=== PATIENT | male | born 1975 | race Two or more races ===

== ENCOUNTER 2017-10-31 08:20 | Emergency (ER) | payer MEDICAID ==
[~2017-10-31] VITALS: Ht 165.1 cm; Wt 97.5 kg
[2017-10-31 08:54] VITALS: BP 152/97
[2017-10-31] MEDS ORDERED: LORazepam 2MG/ML-1ML VIAL IM ONE (09:15)
== END 2017-10-31 09:50 | disposition home or self-care (01) ==
LOC: ER 08:20
DX: T40.3X1A Poisoning by methadone, accidental (unintentional), initial encounter (principal); F41.9 Anxiety disorder, unspecified; I10 Essential (primary) hypertension; Y92.89 Other specified places as the place of occurrence of the external cause
CPT/HCPCS: 93005; 96372; 99284; J2060